=== PATIENT | male | born 1990 ===

== ENCOUNTER 2017-12-24 15:50 | Emergency (ER) ==
[2017-12-24] MEDS ORDERED: HYDROcodone/Acetaminophen 10/325 mg Tablet ONE (16:35)
[2017-12-24] MEDS ORDERED: Lorazepam 1 MG TAB ONE (16:35)
--- NOTE | 2017-12-24 17:15 | CT ---
BRAIN CT WITHOUT IV CONTRAST 12/24/17 HISTORY: 27-year-old male with history of trauma, fall from a top bunk onto face. No focal mass or midline shift. No intra or extra-axial hemorrhage. Sinuses and mastoids are clear of acute process. IMPRESSION: No acute intracranial process. No mass or bleed. POS: [facility]
--- NOTE | 2017-12-24 17:20 | CT ---
CERVICAL SPINE CT SCAN WITHOUT IV CONTRAST: 12/24/17 HISTORY: 27-year-old male with history of injury from trauma after falling off a top bunk and hitting face. No evidence for acute fracture or facet dislocation or other significant osseous abnormality. IMPRESSION: Unremarkable cervical spine CT. POS: [facility]
--- NOTE | 2017-12-24 17:44 | CT ---
CT FACIAL BONES WITH CORONAL AND SAGITTAL REFORMATIONS: HISTORY: Fall from top bunk onto face. Facial pain. FINDINGS: The facial bone are intact. No facial bone fracture is seen. No temporomandibular dislocation is iden tified. The visualized paranasal sinuses and mastoid air cells are well aerated. No air fluid levels are seen. IMPRESSION: No CT evidence of facial bone fracture. POS: [facility]
== END 2017-12-24 17:19 ==
LOC: MADERS 15:50
DX: R56.9 Unspecified convulsions (principal)
CPT/HCPCS: 70450; 70486; 72125